=== PATIENT | female | born 1990 | race Caucasian/White ===

== ENCOUNTER 2019-08-27 16:01 | Emergency (ER) | payer MEDICAID ==
[~2019-08-27] VITALS: Ht 160 cm; Wt 56.2 kg
[2019-08-27 16:14] VITALS: Ht 160 cm; Wt 56.2 kg
[2019-08-27 18:09] VITALS: BP 111/67
== END 2019-08-27 18:09 | disposition home or self-care (01) ==
LOC: ED 16:01
DX: O99.511 Diseases of the respiratory system complicating pregnancy, first trimester (principal); Z3A.01 Less than 8 weeks gestation of pregnancy
CPT/HCPCS: 87804